=== PATIENT | female | born 1985 | race Caucasian/White ===

== ENCOUNTER 2019-06-30 07:45 | Inpatient (IN) ==
[2019-06-30] MEDS ORDERED: Metoclopramide 10 MG/2 ML VIAL IVP ONE (09:52)
[2019-06-30] MEDS ORDERED: CeFAZolin Premix DUPLEX 2,000 MG/50 ML BAG IVPB ONE (09:52)
[2019-06-30] MEDS ORDERED: Ringers Solution, Lactated 1,000 ML IVC ONE (09:52)
[2019-06-30] MEDS ORDERED: Famotidine 20 MG/2 ML VIAL IVP ONE (09:52)
[2019-06-30] MEDS ORDERED: Oxytocin 20 units/ LR 1000 mL 20 UNIT/1,000 ML BAG IVC ONE (09:52)
[2019-06-30] MEDS ORDERED: Ringers Solution, Lactated 1,000 ML IVC SCH ×2 (10:00→16:06)
[2019-06-30] MEDS ORDERED: Oxytocin 20 units/ LR 1000 mL 20 UNIT/1,000 ML BAG IVC SCH ×2 (10:00→16:06)
[2019-06-30 10:27] LABS: Basophils # 0.1 K/mcL (0.0-0.2); Basophils % 0.5 %; Eosinophils # 0.2 K/mcL (0.0-0.6); Eosinophils % 1.5 %; Hematocrit 39.7 % (35.3-44.9); Hemoglobin 14.1 g/dL (11.5-15.4); Immature Granulocytes % 1.2 % (0-4); Lymphocytes # 2.6 K/mcL (0.6-4.6); Lymphocytes % 16.4 %; Mean Corpuscular HGB Conc 35.5 g/dL (31.6-35.5); Mean Corpuscular Hemoglobin 31.9 pg (28.0-33.3); Mean Corpuscular Volume 89.8 fL (83.0-100.0); Mean Platelet Volume 8.6 fL (9.4-12.4); Monocytes # 0.8 K/mcL (0.0-1.3); Neutrophils # 11.7 K/mcL (1.6-8.9); Platelet Count 172 K/mcL (140-400); Red Blood Count 4.42 M/mcL (3.82-4.97); Red Cell Distribution Width 13.3 % (11.5-14.5); Segmented Neutrophils % 75.4 %; White Blood Count 15.5 K/mcL (4.3-11.1)
[2019-06-30 10:48] LABS: Amphetamine Screen,Urine Negative ng/mL (Cutoff=1000); Barbiturate Screen,Urine Negative ng/mL (Cutoff=200); Benzodiazepines Screen,Urine Negative ng/mL (Cutoff=200); Cannabinoid Screen,Urine Positive ng/mL (Cutoff = 50); Cocaine Screen,Urine Negative ng/mL (Cutoff= 300); Opiate Screen,Urine Negative ng/mL (Cutoff=300); Phencyclidine Screen,Urine Negative ng/mL (Cutoff=25)
[2019-06-30] MEDS ORDERED: *HR* FentaNYL (PF) 100 MCG/2 ML VIAL ONE (10:56)
[2019-06-30] MEDS ORDERED: *HR* Morphine Sulfate/PF 10 MG/10 ML AMPUL ONE (10:56)
[2019-06-30] MEDS ORDERED: *HR* Oxytocin 10 UNIT/ML VIAL IM ONE ×2 (10:58→13:12)
[2019-06-30] MEDS ORDERED: *HR* Phenylephrine 10 MG/ML VIAL ONE (12:21)
[2019-06-30] MEDS ORDERED: Ringers Solution, Lactated 1,000 ML ONE ×2 (12:22→13:12)
[2019-06-30] MEDS ORDERED: Morphine Sulfate 2 MG/ML SYRINGE IVP PRN ×2 (14:24→16:06)
[2019-06-30] MEDS ORDERED: Ondansetron 4 MG/2 ML VIAL IVP PRN ×3 (14:24→16:06)
[2019-06-30] MEDS ORDERED: *HR* OxyCODONE/APAP 5/325 TABLET PO PRN ×2 (14:24→16:06)
[2019-06-30] MEDS ORDERED: *HR* HYDROmorphone (PF) 1 MG/ML SYRINGE IVP PRN ×2 (14:24→16:06)
[2019-06-30] MEDS ORDERED: Ibuprofen 400 MG TABLET PO PRN ×2 (14:24→16:06)
[2019-06-30] MEDS ORDERED: *HR* OxyCODONE/APAP 10/325 TABLET PO PRN (16:06)
[2019-06-30] MEDS ORDERED: Metoclopramide 10 MG/2 ML VIAL IVP PRN (16:06)
[2019-06-30] MEDS ORDERED: Sennosides 8.6 MG TABLET PO PRN (16:06)
[2019-06-30] MEDS: metroNIDAZOLE 500 MG TABLET PO SCH (17:56)
[2019-06-30] MEDS: cephALEXin 500 MG CAPSULE PO SCH (17:56)
[2019-06-30] MEDS: Ibuprofen 600 MG TABLET PO PRN (17:56)
[2019-06-30] MEDS: *HR* OxyCODONE/APAP 5/325 TABLET PO PRN (20:37)
[2019-07-01] MEDS: Ibuprofen 600 MG TABLET PO PRN ×3 (05:05→20:43)
[2019-07-01 06:27] LABS: Basophils # 0.1 K/mcL (0.0-0.2); Basophils % 0.2 %; Eosinophils # 0.3 K/mcL (0.0-0.6); Eosinophils % 1.4 %; Hematocrit 32.4 % (35.3-44.9); Immature Granulocytes % 0.6 % (0-4); Lymphocytes # 1.3 K/mcL (0.6-4.6); Lymphocytes % 6.2 %; Mean Corpuscular HGB Conc 34.6 g/dL (31.6-35.5); Mean Corpuscular Hemoglobin 32.4 pg (28.0-33.3); Mean Corpuscular Volume 93.6 fL (83.0-100.0); Mean Platelet Volume 8.8 fL (9.4-12.4); Monocytes % 4.8 %; Platelet Count 139 K/mcL (140-400); Red Blood Count 3.46 M/mcL (3.82-4.97); Red Cell Distribution Width 13.3 % (11.5-14.5); Segmented Neutrophils % 86.8 %; White Blood Count 20.7 K/mcL (4.3-11.1)
[2019-07-01 06:29] LABS: Hemoglobin 11.2 g/dL (11.5-15.4)
[2019-07-01] MEDS: Prenatal Vit/FA 1 EACH TABLET PO SCH (08:11)
[2019-07-01] MEDS: metroNIDAZOLE 500 MG TABLET PO SCH ×3 (08:12→20:43)
[2019-07-01] MEDS: cephALEXin 500 MG CAPSULE PO SCH ×3 (08:12→20:43)
[2019-07-01] MEDS: Simethicone 80 MG TAB.CHEW PO PRN (17:50)
[2019-07-01] MEDS ORDERED: Lanolin 7 G OINT...G. TP PRN (18:15)
[2019-07-01] MEDS: *HR* OxyCODONE/APAP 5/325 TABLET PO PRN (22:33)
[2019-07-02] MEDS: Simethicone 80 MG TAB.CHEW PO PRN (02:23)
[2019-07-02] MEDS: *HR* OxyCODONE/APAP 5/325 TABLET PO PRN (06:38)
[2019-07-02 07:37] VITALS: BP 100/67
[2019-07-02] MEDS: metroNIDAZOLE 500 MG TABLET PO SCH (08:57)
[2019-07-02] MEDS: cephALEXin 500 MG CAPSULE PO SCH (08:57)
[2019-07-02] MEDS: Prenatal Vit/FA 1 EACH TABLET PO SCH (08:57)
[2019-07-02] MEDS: Ibuprofen 600 MG TABLET PO PRN (08:57)
== END 2019-07-02 11:40 | disposition home or self-care (01) | DRG 784 ==
LOC: 1NENULAB 09:45 → 1NENUOBS 16:05
PROVIDERS: ADMIT Obstetrics & Gynecology; ATTEND Obstetrics & Gynecology